=== PATIENT | female | born 1965 | race African-American/Black ===

== ENCOUNTER 2018-04-21 08:40 | Day surgery (SDC) | payer MEDICARE, MEDICAID ==
[2018-04-21] MEDS ORDERED: Sodium Chloride 0.9% 20 ML ONE (09:28)
[2018-04-21] MEDS ORDERED: Abatacept 750 MG in Sodium Chloride 0.9% 70 ML IVPB SCH (09:30)
[2018-04-21 09:42] VITALS: BP 162/78; TEMP 97.4
== END 2018-04-21 15:32 | disposition home or self-care (01) ==
LOC: ONC/OP 08:40
PROVIDERS: ATTEND Internal Medicine Rheumatology
DX: M06.9 Rheumatoid arthritis, unspecified (principal); Z79.52 Long term (current) use of systemic steroids; Z79.899 Other long term (current) drug therapy; Z88.5 Allergy status to narcotic agent; Z79.891 Long term (current) use of opiate analgesic
CPT/HCPCS: 96413; J0129; J7050

== ENCOUNTER 2018-05-20 08:56 | Day surgery (SDC) | payer MEDICARE, MEDICAID ==
[~2018-05-20 08:56] MED LIST: Abatacept 750 MG in Sodium Chloride 0.9% 70 ML IVPB SCH
[2018-05-20] MEDS ORDERED: Sodium Chloride 0.9% 20 ML ONE (09:04)
[2018-05-20 09:54] VITALS: BP 144/70; TEMP 98.3
== END 2018-05-20 10:52 | disposition home or self-care (01) ==
LOC: ONC/OP 08:56
PROVIDERS: ATTEND Internal Medicine Rheumatology
DX: M06.9 Rheumatoid arthritis, unspecified (principal); Z79.52 Long term (current) use of systemic steroids; Z79.899 Other long term (current) drug therapy; Z88.5 Allergy status to narcotic agent
CPT/HCPCS: 96413; J0129; J7050

== ENCOUNTER 2018-05-25 10:16 | Outpatient (CLI) | payer MEDICARE, MEDICAID ==
--- NOTE | 2018-05-25 12:12 | BD ---
BONE DENSITOMETRY USING DEXA: Date: 05/25/18 HISTORY: Postmenopausal screening for osteoporosis. FINDINGS: Lumbar Spine: BMD (g/cm2) L1 1.066 T-Score: 0.7 Z-Score: 1.4 L2 1.103 T-Score: 0.7 Z-Score: 1.5 L3 1.135 T-Score: 0.5 Z-Score: 1.3 L4 1.036 T-Score: -0.2 Z-Score: 0.6 L1-L4 1.087 T-Score: 0.4 Z-Score: 1.2 Femoral Neck: 0.671 T-Score: -1.6 Z-Score: -0.8 Total Femur: 0.612 T-Score: -2.7 Z-Score: -2.2 IMPRESSION: Osteoporosis. POS: [facility]
== END 2018-05-25 10:17 | disposition home or self-care (01) ==
LOC: BICMAMMO 10:16
PROVIDERS: ATTEND Internal Medicine Rheumatology
DX: M81.0 Age-related osteoporosis without current pathological fracture (principal)
CPT/HCPCS: 77080

== ENCOUNTER 2018-06-25 08:08 | Day surgery (SDC) | payer MEDICARE, MEDICAID ==
[2018-06-25] MEDS ORDERED: diphenhydrAMINE 50 MG/ML VIAL IVP PRN (09:09)
[2018-06-25] MEDS ORDERED: Acetaminophen 500 MG TAB PO PRN (09:10)
[2018-06-25] MEDS ORDERED: diphenhydrAMINE 25 MG CAP PO PRN (09:10)
[2018-06-25] MEDS ORDERED: Sodium Chloride 0.9% 1,000 ML IV SCH (09:15)
[2018-06-25] MEDS ORDERED: Abatacept 750 MG in Sodium Chloride 0.9% 70 ML IVPB SCH (09:15)
[2018-06-25 09:32] VITALS: BP 145/71; TEMP 98.3
== END 2018-06-25 11:02 | disposition home or self-care (01) ==
LOC: ONC/OP 08:08
PROVIDERS: ATTEND Internal Medicine Rheumatology
DX: M06.9 Rheumatoid arthritis, unspecified (principal)
CPT/HCPCS: 96413

== ENCOUNTER 2018-07-23 09:08 | Day surgery (SDC) | payer MEDICARE, MEDICAID ==
[~2018-07-23 09:08] MED LIST changes: +Acetaminophen 500 MG TAB PO PRN; +Sodium Chloride 0.9% 1,000 ML IV SCH; +diphenhydrAMINE 25 MG CAP PO PRN; +diphenhydrAMINE 50 MG/ML VIAL IVP PRN
[2018-07-23 09:34] VITALS: BP 146/69; TEMP 98
== END 2018-07-23 11:31 | disposition home or self-care (01) ==
LOC: ONC/OP 09:08
PROVIDERS: ATTEND Internal Medicine Rheumatology
DX: M06.9 Rheumatoid arthritis, unspecified (principal); Z88.5 Allergy status to narcotic agent
CPT/HCPCS: 96413

== ENCOUNTER 2018-09-10 09:36 | Day surgery (SDC) | payer MEDICARE, MEDICAID ==
[~2018-09-10 09:36] MED LIST changes: -Abatacept 750 MG in Sodium Chloride 0.9% 70 ML IVPB SCH
[2018-09-10 10:03] VITALS: BP 162/76
== END 2018-09-10 10:59 | disposition home or self-care (01) ==
LOC: ONC/OP 09:36
PROVIDERS: ATTEND Internal Medicine Rheumatology
DX: M06.9 Rheumatoid arthritis, unspecified (principal)
CPT/HCPCS: 96413; J0129; J3490

== ENCOUNTER 2018-10-09 10:38 | Day surgery (SDC) | payer MEDICARE, MEDICAID ==
[2018-10-09] MEDS ORDERED: Sodium Chloride 0.9% 1,000 ML IV SCH (10:45)
[2018-10-09] MEDS ORDERED: diphenhydrAMINE 25 MG CAP PO PRN (10:45)
[2018-10-09] MEDS ORDERED: diphenhydrAMINE 50 MG/ML VIAL IVP PRN (10:46)
[2018-10-09] MEDS ORDERED: Acetaminophen 500 MG TAB PO PRN (10:47)
[2018-10-09] MEDS ORDERED: Abatacept 750 MG in Sodium Chloride 0.9% 70 ML IVPB SCH (11:00)
[2018-10-09 11:39] VITALS: BP 128/63; TEMP 98.1
[2018-10-09] MEDS ORDERED: Sodium Chloride 0.9% 20 ML ONE (11:50)
== END 2018-10-09 12:36 | disposition home or self-care (01) ==
LOC: ONC/OP 10:38
PROVIDERS: ATTEND Internal Medicine Rheumatology
DX: M06.9 Rheumatoid arthritis, unspecified (principal); Z88.5 Allergy status to narcotic agent
CPT/HCPCS: 96413; J0129; J3490

== ENCOUNTER 2018-11-06 09:28 | Day surgery (SDC) | payer MEDICARE, MEDICAID ==
[~2018-11-06 09:28] MED LIST changes: +Abatacept 750 MG in Sodium Chloride 0.9% 70 ML IVPB SCH
[2018-11-06] MEDS ORDERED: Sodium Chloride 0.9% 20 ML ONE ×2 (09:36→10:29)
[2018-11-06 11:59] VITALS: BP 114/79; TEMP 98.1
== END 2018-11-06 11:59 | disposition home or self-care (01) ==
LOC: ONC/OP 09:28
PROVIDERS: ATTEND Internal Medicine Rheumatology
DX: M06.9 Rheumatoid arthritis, unspecified (principal); Z88.5 Allergy status to narcotic agent
CPT/HCPCS: 96413; J0129; J3490

== ENCOUNTER 2019-01-08 09:57 | Day surgery (SDC) | payer MEDICARE, MEDICAID ==
[2019-01-08 11:48] VITALS: BP 179/80; TEMP 97.5
== END 2019-01-08 11:48 | disposition home or self-care (01) ==
LOC: ONC/OP 09:57
PROVIDERS: ATTEND Internal Medicine Rheumatology
DX: M06.9 Rheumatoid arthritis, unspecified (principal); Z88.5 Allergy status to narcotic agent
CPT/HCPCS: 96413; J0129; J3490

== ENCOUNTER 2019-02-05 09:41 | Day surgery (SDC) | payer MEDICARE, MEDICAID ==
[2019-02-05 11:50] VITALS: BP 189/89; TEMP 97.7
== END 2019-02-05 11:51 | disposition home or self-care (01) ==
LOC: ONC/OP 09:41
PROVIDERS: ATTEND Internal Medicine Rheumatology
DX: M06.9 Rheumatoid arthritis, unspecified (principal); Z88.5 Allergy status to narcotic agent
CPT/HCPCS: 96413; J0129; J3490

== ENCOUNTER 2019-02-11 09:53 | Outpatient (CLI) | payer MEDICARE, MEDICAID ==
--- NOTE | 2019-02-11 11:15 | RAD ---
CERVICAL SPINE: A total of 6 views. Lateral views were obtained with flexion and extension. INDICATION: Occipital neuritis. FINDINGS: Films were taken with the patient in a wheelchair and the lower cervical vertebrae were inadequately imaged. Moderate degenerative changes are noted. Disk space loss is seen at C4-5, C5-6, and C6-7. There are anterior osteophytes. Slight anterolisthesis at C5-6 and C6-7. Anterolisthesis is slightly exacerb ated with flexion and is noted at C3-4, C4-5, and C5-6. IMPRESSION: Moderate degenerative changes as described. POS: [facility]
== END 2019-02-11 09:54 | disposition home or self-care (01) ==
LOC: RAD 09:53
PROVIDERS: ATTEND Nurse Practitioner Family
DX: M54.81 Occipital neuralgia (principal); M47.812 Spondylosis without myelopathy or radiculopathy, cervical region
CPT/HCPCS: 72040

== ENCOUNTER 2019-03-17 09:24 | Day surgery (SDC) | payer MEDICARE, MEDICAID ==
[~2019-03-17 09:24] MED LIST changes: -Abatacept 750 MG in Sodium Chloride 0.9% 70 ML IVPB SCH; -diphenhydrAMINE 25 MG CAP PO PRN
[2019-03-17] MEDS ORDERED: Abatacept 750 MG in Sodium Chloride 0.9% 70 ML IVPB SCH (12:30)
== END 2019-03-17 15:19 | disposition home or self-care (01) ==
LOC: ONC/OP 09:24
PROVIDERS: ATTEND Internal Medicine Rheumatology
DX: M06.9 Rheumatoid arthritis, unspecified (principal); Z88.5 Allergy status to narcotic agent
CPT/HCPCS: 96413; J0129; J3490

== ENCOUNTER 2019-04-23 08:30 | Day surgery (SDC) | payer MEDICARE, MEDICAID ==
[~2019-04-23 08:30] MED LIST changes: +Abatacept 750 MG in Sodium Chloride 0.9% 70 ML IVPB SCH; +diphenhydrAMINE 25 MG CAP PO PRN
[2019-04-23 10:08] VITALS: BP 172/79; TEMP 98.5
== END 2019-04-23 11:50 | disposition home or self-care (01) ==
LOC: ONC/OP 08:30
PROVIDERS: ATTEND Internal Medicine Rheumatology
DX: M06.9 Rheumatoid arthritis, unspecified (principal); Z88.5 Allergy status to narcotic agent
CPT/HCPCS: 96413; J0129; J3490; Q0163

== ENCOUNTER 2019-06-01 09:30 | Day surgery (SDC) | payer MEDICARE, MEDICAID ==
[2019-06-01 13:33] VITALS: BP 194/89; TEMP 98.5
== END 2019-06-01 13:33 | disposition home or self-care (01) ==
LOC: ONC/OP 09:30
PROVIDERS: ATTEND Internal Medicine Rheumatology
DX: M06.9 Rheumatoid arthritis, unspecified (principal); Z88.5 Allergy status to narcotic agent
CPT/HCPCS: 96413; J0129; J3490

== ENCOUNTER 2019-08-20 09:56 | Day surgery (SDC) | payer MEDICARE, MEDICAID ==
[2019-08-20] MEDS ORDERED: Sodium Chloride 0.9% 20 ML ONE (10:18)
[2019-08-20 10:52] VITALS: BP 185/88; TEMP 97.9
== END 2019-08-20 11:53 | disposition home or self-care (01) ==
LOC: ONC/OP 09:56
PROVIDERS: ATTEND Internal Medicine Rheumatology
DX: M06.9 Rheumatoid arthritis, unspecified (principal); Z88.5 Allergy status to narcotic agent
CPT/HCPCS: 96413; J0129; J3490

== ENCOUNTER 2019-09-17 10:40 | Day surgery (SDC) | payer MEDICARE, MEDICAID ==
[2019-09-17] MEDS ORDERED: Sodium Chloride 0.9% 20 ML ONE (10:56)
[2019-09-17 11:46] VITALS: BP 173/75
== END 2019-09-17 12:18 | disposition home or self-care (01) ==
LOC: ONC/OP 10:40
PROVIDERS: ATTEND Internal Medicine Rheumatology
DX: M06.9 Rheumatoid arthritis, unspecified (principal); Z88.5 Allergy status to narcotic agent
CPT/HCPCS: 96413; J0129; J3490

== ENCOUNTER 2019-10-26 09:33 | Day surgery (SDC) | payer MEDICARE, MEDICAID | END 2019-10-26 12:12 | disposition home or self-care (01) | LOC: ONC/OP 09:33 | PROVIDERS: ATTEND Internal Medicine Rheumatology | DX: M06.9 Rheumatoid arthritis, unspecified (principal); Z88.5 Allergy status to narcotic agent | CPT/HCPCS: 96413; J0129; J3490 ==

== ENCOUNTER 2020-01-05 09:15 | Day surgery (SDC) | payer MEDICARE, MEDICAID ==
[2020-01-05] MEDS ORDERED: Sodium Chloride 0.9% 20 ML ONE (09:30)
[2020-01-05] MEDS ORDERED: Acetaminophen 500 MG TAB PO PRN (09:37)
[2020-01-05] MEDS ORDERED: diphenhydrAMINE 50 MG/ML VIAL IVP PRN (09:37)
[2020-01-05] MEDS ORDERED: diphenhydrAMINE 25 MG CAP PO PRN (09:37)
[2020-01-05] MEDS ORDERED: Abatacept 750 MG in Sodium Chloride 0.9% 70 ML IVPB SCH (09:45)
== END 2020-01-05 11:35 | disposition home or self-care (01) ==
LOC: ONC/OP 09:15
PROVIDERS: ATTEND Internal Medicine Rheumatology
DX: M06.9 Rheumatoid arthritis, unspecified (principal); Z88.5 Allergy status to narcotic agent
CPT/HCPCS: 96413; J0129; J3490

== ENCOUNTER 2020-02-07 09:15 | Day surgery (SDC) | payer MEDICARE, MEDICAID ==
[2020-02-07] MEDS ORDERED: diphenhydrAMINE 50 MG/ML VIAL IVP PRN (09:32)
[2020-02-07] MEDS ORDERED: diphenhydrAMINE 25 MG CAP PO PRN (09:33)
[2020-02-07] MEDS ORDERED: Acetaminophen 500 MG TAB PO PRN (09:33)
[2020-02-07 09:46] VITALS: TEMP 98.5
[2020-02-07] MEDS ORDERED: Abatacept 750 MG in Sodium Chloride 0.9% 70 ML IVPB SCH (10:00)
[2020-02-07 11:25] VITALS: BP 186/86
== END 2020-02-07 11:25 | disposition home or self-care (01) ==
LOC: ONC/OP 09:15
PROVIDERS: ATTEND Internal Medicine Rheumatology
DX: M06.9 Rheumatoid arthritis, unspecified (principal); Z88.5 Allergy status to narcotic agent
CPT/HCPCS: 96413; J0129; J3490; Q0163

== ENCOUNTER 2020-03-03 08:25 | Day surgery (SDC) | payer MEDICARE, MEDICAID ==
[~2020-03-03 08:25] MED LIST changes: -Sodium Chloride 0.9% 1,000 ML IV SCH
[2020-03-03 13:35] VITALS: BP 183/86
== END 2020-03-03 13:36 | disposition home or self-care (01) ==
LOC: ONC/OP 08:25
PROVIDERS: ATTEND Internal Medicine Rheumatology
DX: M06.9 Rheumatoid arthritis, unspecified (principal); Z88.5 Allergy status to narcotic agent
CPT/HCPCS: 96413; J0129; J3490

== ENCOUNTER 2020-09-27 08:28 | Emergency (ER) | payer MEDICARE, MEDICAID ==
[2020-09-27] MEDS ORDERED: EPINEPHrine 1 MG/10 ML Abboject SYRINGE ONE (08:30)
[2020-09-27] MEDS ORDERED: Dextrose 50% Abboject 50 ML SYRINGE ONE (08:30)
[2020-09-27] MEDS ORDERED: Atropine Sulfate 1 mg/10 ml Syringe ONE (08:30)
[2020-09-27] MEDS ORDERED: Sodium Bicarb 50 MEQ/50 ML Abboject 8.4% SYRINGE ONE ×2 (08:30→09:11)
[2020-09-27] MEDS ORDERED: Calcium Chloride 1 GM/10 ML Abboject SYRINGE ONE (08:30)
== END 2020-09-27 08:51 | disposition expired ==
LOC: ERS 08:28
DX: I46.9 Cardiac arrest, cause unspecified (principal); D57.00 Hb-SS disease with crisis, unspecified; D50.9 Iron deficiency anemia, unspecified; I10 Essential (primary) hypertension; M06.9 Rheumatoid arthritis, unspecified; Z85.6 Personal history of leukemia; Z87.01 Personal history of pneumonia (recurrent)
CPT/HCPCS: 92950; J0171; J0461